=== PATIENT | male | born 2000 | race Two or more races ===

== ENCOUNTER → 2023-03-31 | Emergency (ER) | payer OTHER ==
[~2023-03-31] VITALS: Ht 180.3 cm; Wt 77.1 kg
[~2023-03-31] MED LIST: AMOX-CLAV 875-1 EACH PO
== END | disposition home or self-care (01) ==
LOC: ER 05:17
DX: H66.92 Otitis media, unspecified, left ear (principal); T16.2XXA Foreign body in left ear, initial encounter